=== PATIENT | female | born 2000 | race Caucasian/White ===

== ENCOUNTER 2022-03-18 20:09 | Inpatient (IN) | payer SELFPAY ==
[2022-03-18] VITALS (94 sets, daily range): BP systolic 121; BP diastolic 76; PULSE 75; TEMP 98.6; O2SAT 97–100
[~2022-03-18] VITALS: Ht 167.6 cm; Wt 111.3 kg
[2022-03-18 20:37] LABS: BASO # 0.1 K/mm3 (0.0-0.2); BASO % 0.4 % (0.0-2.0); GRAN # 12.8 K/mm3 (1.4-6.5); GRAN % 89.3 % (42.2-75.2); HEMOGLOBIN 12.2 g/dl (12.5-16.0); LYMPH # 1.1 K/mm3 (1.2-3.4); LYMPH % 7.9 % (20.0-51.0); MEAN CELL VOLUME 81 fl (80.0-100.0); MEAN CORPUSCULAR HEMOGLOBIN 28 pg (27-31); MEAN CORPUSCULAR HGB CONC 34 g/dl (33.0-37.0); MEAN PLATELET VOLUME 10.4 fl (7.4-10.4); MONO # 0.3 K/mm3 (0.1-0.6); MONO % 1.8 % (1.7-9.3); PLATELET COUNT 288 K/mm3 (130-400); RED BLOOD COUNT 4.43 M/mm3 (4.10-5.30); REDCELL DISTRIBUTION WIDTH-CV 13.5 % (11.5-14.5)
[2022-03-18 20:38] LABS: HEMATOCRIT 35.9 % (37.0-47.0)
[2022-03-18 20:42] LABS: ALANINE AMINOTRANSFERASE 29 U/L (0-55); ALBUMIN 4.1 gm/dL (3.5-5.0); ALKALINE PHOSPHATASE 83 U/L (40-150); ANION GAP 12 mmol/L (7-16); AST,SGOT 21 U/L (5-34); BILIRUBIN,TOTAL 0.4 mg/dL (0.2-1.2); BLOOD UREA NITROGEN 6 mg/dL (7-19); CALCIUM 8.9 mg/dL (8.4-10.2); CARBON DIOXIDE 18 mmol/L (22-29); CHLORIDE 111 mmol/L (98-107); CREATININE, serum 0.84 mg/dL (0.57-1.11); GLUCOSE 127 mg/dL (70-99); POTASSIUM 3.3 mmol/L (3.5-4.5); SODIUM 141 mmol/L (136-145); TOTAL PROTEIN 7.6 gm/dL (6.2-8.1)
[2022-03-18 20:43] LABS: SALICYLATE < 5.0 mg/dL (15.0-30.0)
[2022-03-18 20:54] LABS: TRICYCLIC ANTIDEPRESS URINE NEGATIVE
[2022-03-18 20:58] LABS: INR 1.2 (0.8-3.0); PROTHROMBIN TIME 13.8 SECONDS (9.7-12.8)
[2022-03-18 21:44] LABS: ALCOHOL(ethanol),MEDICAL < 10 mg/dL (0-10)
--- NOTE | 2022-03-18 22:06 | NUR ---
Received report from ED nurse, Kennedi.
--- NOTE | 2022-03-18 22:06 | NUR ---
Received report from ED nurse, Kennedi.
--- NOTE | 2022-03-18 22:21 | NUR ---
Patient arrives to ICU room 4 via ED stretcher. Patient is pleasant, alert and oriented. She is able to ambulate independently to toilet then bed. Gait is steady. Initial vitals within normal limits; she is on room air. She arrives receiving acetylcystine and potassium replacement with IVF. Patient denies any pain but reports a dry cough. Patient is nauseaus and actively dry heaving. IV phenergan provided in ED. Laurence aware of patient's arrival to unit. Patient informed of suicide precautions and visiting restrictions.
[2022-03-18 22:22] LABS: COLLECTION METHOD CLEAN CATCH
[2022-03-18 22:35] LABS: URINE APPEARANCE Clear (CLEAR/HAZY); URINE BLOOD Negative (NEGATIVE); URINE COLOR Yellow (YELLOW); URINE GLUCOSE Negative (NEGATIVE); URINE KETONE 3+ (NEGATIVE); URINE NITRATE Negative (NEGATIVE); URINE PROTEIN(semi-quant) TRACE (NEGATIVE); URINE UROBILINOGEN 0.2 E.U/dL (0.2-1.0)
[2022-03-18 22:44] LABS: MUCOUS Present (NOT PRESENT); SQUAMOUS EPITHELIAL 20-50 /hpf (0-10); URINE BACTERIA None Seen /hpf (NONE SEEN)
--- NOTE | 2022-03-18 23:13 | NUR ---
Patient states her belongings include clothes, a cell phone, and wallet. She does not arrive to the ICU with theses belongings. Per report received from ED nurse, belongings have already been bagged and are with security.
[2022-03-19] VITALS (1365 sets, daily range): BP systolic 109–137; BP diastolic 51–83; PULSE 69–87; TEMP 97.8–98.8; O2SAT 80–100
[2022-03-19 05:54] LABS: BASO # 0.1 K/mm3 (0.0-0.2); BASO % 0.4 % (0.0-2.0); GRAN # 14.7 K/mm3 (1.4-6.5); GRAN % 78.8 % (42.2-75.2); HEMOGLOBIN 11.6 g/dl (12.5-16.0); LYMPH # 2.5 K/mm3 (1.2-3.4); LYMPH % 13.6 % (20.0-51.0); MEAN CELL VOLUME 81 fl (80.0-100.0); MEAN CORPUSCULAR HEMOGLOBIN 27 pg (27-31); MEAN CORPUSCULAR HGB CONC 34 g/dl (33.0-37.0); MEAN PLATELET VOLUME 10.5 fl (7.4-10.4); MONO # 1.3 K/mm3 (0.1-0.6); MONO % 6.8 % (1.7-9.3); PLATELET COUNT 276 K/mm3 (130-400); RED BLOOD COUNT 4.29 M/mm3 (4.10-5.30); REDCELL DISTRIBUTION WIDTH-CV 13.5 % (11.5-14.5)
[2022-03-19 05:56] LABS: HEMATOCRIT 34.6 % (37.0-47.0)
[2022-03-19 06:03] LABS: INR 1.5 (0.8-3.0); PROTHROMBIN TIME 17.6 SECONDS (9.7-12.8)
[2022-03-19 06:10] LABS: ALBUMIN 3.4 gm/dL (3.5-5.0); BILIRUBIN,TOTAL 0.4 mg/dL (0.2-1.2); CALCIUM 8.2 mg/dL (8.4-10.2); CREATININE, serum 0.7 mg/dL (0.57-1.11); POTASSIUM 3.6 mmol/L (3.5-4.5); TOTAL PROTEIN 6.5 gm/dL (6.2-8.1)
--- NOTE | 2022-03-19 07:16 | NUR ---
Report given to ALISON Osuna.
--- NOTE | 2022-03-19 07:16 | NUR ---
Report given to ALISON Osuna.
[2022-03-19 19:28] LABS: INR 1.6 (0.8-3.0); PROTHROMBIN TIME 18.3 SECONDS (9.7-12.8)
[2022-03-19 19:39] LABS: ALANINE AMINOTRANSFERASE 20 U/L (0-55); AST,SGOT 13 U/L (5-34)
[2022-03-19 19:42] LABS: ALANINE AMINOTRANSFERASE 20 U/L (0-55); ALBUMIN 3.3 gm/dL (3.5-5.0); ALKALINE PHOSPHATASE 55 U/L (40-150); AST,SGOT 13 U/L (5-34); BILIRUBIN,TOTAL 0.4 mg/dL (0.2-1.2); TOTAL PROTEIN 6.1 gm/dL (6.2-8.1)
[2022-03-19 19:43] LABS: ACETAMINOPHEN < 1.0 ug/mL (10-30)
[2022-03-19 19:44] LABS: ACETAMINOPHEN < 1.0 ug/mL (10-30)
[2022-03-19 19:52] LABS: BILIRUBIN,DIRECT 0.2 mg/dL (0.0-0.5)
--- NOTE | 2022-03-19 20:00 | NUR ---
CALLED [facility] AND SPOKE WITH THIAGO ZEPEDA PERTAINING TO PTS LABS. SHE WOULD LIKE RENAL LABS CHECKED IN THE AM TO ASSESS THE EFFECTS OF IBUPROFEN. LIVER ENZYMES ARE WITHIN NORMAL RANGE, ACETAMINOPHEN LEVELS ARE LESS THAN 1 AND INR IS ALSO WITHIN NORMAL RANGE. WOULD LIKE TO BE CALLED IN THE AM WITH AM LAB RESULTS.
--- NOTE | 2022-03-19 20:00 | NUR ---
CALLED [facility] AND SPOKE WITH THIAOG ZEPEDA PERTAINING TO PTS LABS. SHE WOULD LIKE RENAL LABS CHECKED IN THE AM TO ASSESS THE EFFECTS OF IBUPROFEN. LIVER ENZYMES ARE WITHIN NORMAL RANGE, ACETAMINOPHEN LEVELS ARE LESS THAN 1 AND INR IS ALSO WITHIN NORMAL RANGE. WOULD LIKE TO BE CALLED IN THE AM WITH AM LAB RESULTS.
--- NOTE | 2022-03-19 21:23 | NUR ---
PT ASSESSMENT COMPLETED. PTS VSS. PT TOLERATING REGULAR DIET. PT DENIES A HEADACHE OR ANY NAUSEA/VOMITING. PT STATES SHE FEELS MUCH BETTER TODAY COMPARED TO YESTERDAY. ASKED PT ABOUT PLANS AT DISCHARGE, PT SAYS SHE WAS THINKING ABOUT PA[facility] BUT DR. DE SOUZA MENTIONED THERE WERE OTHER OPTIONS IF SHE WANTED. PT SHOWS A LITTLE HESITANCY AFTER SHE PRIVATELY DISCUSSED OPTIONS WITH "FIANCE". SHE SAYS SHE WOULD LIKE TO GET BETTER AND WANTS TO USE THE BEST RESOURCE AVAILABLE.
[2022-03-20] VITALS (622 sets, daily range): BP systolic 108–133; BP diastolic 65–77; PULSE 66–86; TEMP 98.3–98.7; O2SAT 79–100
[2022-03-20 07:08] LABS: BASO # 0.1 K/mm3 (0.0-0.2); BASO % 0.7 % (0.0-2.0); EOS # 0.4 K/mm3 (0.0-0.7); EOS % 4.2 % (0.0-4.0); GRAN # 4.8 K/mm3 (1.4-6.5); GRAN % 53.7 % (42.2-75.2); HEMOGLOBIN 10.5 g/dl (12.5-16.0); LYMPH % 34.2 % (20.0-51.0); MEAN CELL VOLUME 84 fl (80.0-100.0); MEAN CORPUSCULAR HEMOGLOBIN 27 pg (27-31); MEAN CORPUSCULAR HGB CONC 33 g/dl (33.0-37.0); MEAN PLATELET VOLUME 10.9 fl (7.4-10.4); MONO # 0.6 K/mm3 (0.1-0.6); MONO % 6.7 % (1.7-9.3); PLATELET COUNT 227 K/mm3 (130-400); RED BLOOD COUNT 3.83 M/mm3 (4.10-5.30); REDCELL DISTRIBUTION WIDTH-CV 13.9 % (11.5-14.5)
[2022-03-20 07:11] LABS: HEMATOCRIT 32.1 % (37.0-47.0)
[2022-03-20 07:25] LABS: ALBUMIN 3.1 gm/dL (3.5-5.0); BILIRUBIN,DIRECT 0.1 mg/dL (0.0-0.5); BILIRUBIN,TOTAL 0.2 mg/dL (0.2-1.2); CALCIUM 8.2 mg/dL (8.4-10.2); CREATININE, serum 0.67 mg/dL (0.57-1.11); POTASSIUM 3.6 mmol/L (3.5-4.5); TOTAL PROTEIN 5.6 gm/dL (6.2-8.1)
--- NOTE | 2022-03-20 09:00 | NUR ---
Awake and resting in bed; cooperative and pleasant with staff. Reports some soreness to L. a/c IV. Site assessed and does not appear to have any phlebitis, however, IV was removed for patient comfort. Patent 20 g IV in left wrist as well. Will continue to monitor.
--- NOTE | 2022-03-20 13:06 | NUR ---
SW met with patient to complete intake. Her mckenna Veliz present at bedside. Patient reports that she lives with her mckenna in [place]. She is fully independent with her ADL's and IADL's and does not utilize any DME at home. Patient does not have a PCP at this time. Her preferred pharmacy is [facility]. She does not have a DPOA-HC established but wishes to do so. Form and education provided. Patient appoint Koby ([phone]) as her first agent and her father Bi ([phone]) as a secondary agent. This SW and Dominique Thao witness form. Patient opens up to this SW about going to [place] and would like additional information on the [place] and [place] inpatient facilities. SW provided patient with emotional support and information on the two facilities above. Patient to discharge to the CSU once ready. Discharge plan: CSU
--- NOTE | 2022-03-20 13:06 | NUR ---
SW met with patient to complete intake. Her mckenna Veliz present at bedside. Patient reports that she lives with her mckenna in [place]. She is fully independent with her ADL's and IADL's and does not utilize any DME at home. Patient does not have a PCP at this time. Her preferred pharmacy is [facility]. She does not have a DPOA-HC established but wishes to do so. Form and education provided. Patient appoint Koby ([phone]) as her first agent and her father Bi ([phone]) as a secondary agent. This SW and Dominique Thao witness form. Patient opens up to this SW about going to [place] and would like additional information on the [place] and [place] inpatient facilities. SW provided patient with emotional support and information on the two facilities above. Patient to discharge to the CSU once ready. Discharge plan: CSU
--- NOTE | 2022-03-20 14:08 | NUR ---
Patient screened by [facility]. Agreed to be admitted to the crisis stabilization unit. Hospitalist notified.
--- NOTE | 2022-03-20 14:08 | NUR ---
Patient screened by [facility]. Agreed to be admitted to the crisis stabilization unit. Hospitalist notified.
--- NOTE | 2022-03-20 15:28 | NUR ---
Patient escorted out of the icu unit with janett. Patient alert and oriented and in no distress upon discharge. Contacted [facility] upon patient's departure so they would know to expect her within 15 minutes.
== END 2022-03-20 15:28 | DRG 918 ==
LOC: COL.ER 20:09 → ICU 21:14
PROVIDERS: Nurse Practitioner Family; Personal Emergency Response Attendant; Student in an Organized Health Care Education/Training Program; ADMIT Internal Medicine
DX: T39.312A Poisoning by propionic acid derivatives, intentional self-harm, initial encounter (principal); E87.20 Acidosis, unspecified; R65.10 Systemic inflammatory response syndrome (SIRS) of non-infectious origin without acute organ dysfunction; F32.A Depression, unspecified; F17.210 Nicotine dependence, cigarettes, uncomplicated; F43.10 Post-traumatic stress disorder, unspecified; F41.9 Anxiety disorder, unspecified; T39.1X2A Poisoning by 4-Aminophenol derivatives, intentional self-harm, initial encounter; F12.90 Cannabis use, unspecified, uncomplicated; D64.9 Anemia, unspecified; I45.81 Long QT syndrome; Z53.29 Procedure and treatment not carried out because of patient's decision for other reasons; E87.6 Hypokalemia; R73.9 Hyperglycemia, unspecified; F90.9 Attention-deficit hyperactivity disorder, unspecified type; Y92.89 Other specified places as the place of occurrence of the external cause
CPT/HCPCS: C9113; J0132; J2550; J3475; J3480; J7030; J7060; J7070; J7120